=== PATIENT | male | born 1965 | race Caucasian/White ===

== ENCOUNTER 2023-01-23 22:52 | Emergency (ER) | payer OTHER, SELFPAY ==
--- NOTE | 2023-01-23 23:03 | PC.NURSE ---
[facility] Dudley Doreen notified of patient's in ER. Mr. Logan has released the body.
--- NOTE | 2023-01-24 00:03 | PC.NURSE ---
Pt arrived to ED via EMS CPR in progress at 2242. IO was present in R tibia with NS running. CPR given with Memo device. EMS administered 2 L NS and 11 rounds of epinephrine 1 mg enroute to facility. Pt was intubated at the scene. At 2246 1 of epinephrine was given via IO. At 2246 1 amp of bicarb was given IO. Pulse check at 2247 revealed asystole on the monitor. CPR resumed. I-gel placed by EMS was removed at 2249 and pt was intubated with ET tube. 1 mg of epinephrine given at 2249 via IO. Pulse check at 2250 revealed asystole on the monitor. CPR resumed. At 2252 pulse check revealed asystole. TOD announced at 2252 by .
--- NOTE | 2023-01-24 00:25 | PC.NURSE ---
01/23/23 2306 [facility] notified of patient's .
--- NOTE | 2023-01-24 03:20 | W.ED.CPR ---
HPI - CPR General: Chief Complaint: Cardiac Arrest/CPR Stated Complaint: CARDIAC ARREST Time Seen by Provider: 01/23/23 22:59 Source: patient History of Present Illness: 57-year-old male with no real prior history. History is a bit limited. I was called by paramedics on scene for a gentleman who had collapsed at home. Family evidently had heard his Drop while in the next room. CPR and ACLS protocol were started within 10 minutes. Initial rhythm was fine V-fib, that did not respond to shocked 3 times, 300 mg of amiodarone, and up to 11 mg of epinephrine, as his rhythm was asystole following. After 3 mg of epinephrine, I received a call from the field. ACLS protocol had continued for 20 minutes at that point I believe. Paramedics talk to the family at that point about stopping resuscitative efforts, but the patient's insisted on him being brought to the hospital. No rhythm change from asystole from the roughly 30-minute drive to here. Paramedics report good capnography waveforms with following capnography to below 20 on the monitor, inability to achieve pulse ox, and mottling of the skin. Blood glucose had been reported at 99 By family report, the patient had been complaining of heartburn for several days prior on and off. MD complaint: found unresponsive, stopped breathing and collapsed during rest Onset (ago): minute(s) Place: home Bystander CPR performed: No Number of shocks delivered: 3 Downtime before ACLS arrival (mins): 10 Initial findings in the field: unresponsive, no pulse and VTACH/VFIB (Fine V-fib) ROSC in the field: No Associated injuries: No Associated symptoms: chest pain Known history of: other Treatments prior to arrival: other airway device, chest compressions, defibrillated shocks # (3), epinephrine mgs # (11) and sodium bicarbonate (1 amp) Review of Systems General: Reports: ROS unobtainable due to medical condition Card: Reports: chest pain PENDING SALE TO [facility] ED PFSH: Social History Smoking and tobacco status: current every day smoker Alcohol intake: never Substance/Drug Use: never Physical Exam Const: GENERAL APPEARANCE: ill appearing ORIENTATION/CONSCIOUSNESS: Yes Other orientation findings (Unresponsive) HENMT: COMMON NORMALS: normocephalic, atraumatic and Normal external nose present HEAD & SCALP: normocephalic and atraumatic FACE & SINUS: face symmetric NOSE: Normal external nose present Eye: PUPIL: Yes Dilated pupils and Yes Fixed pupils Neck/C-Spine: GENERAL: Yes trachea midline Chest: CHEST: Yes Symmetrical chest wall rise (Via bag respiration) Resp: AUSCULTATION: rales OTHER: No spontaneous respirations Cardio: PERIPHERAL PULSES: other (Pulseless) GI: COMMON NORMALS: Soft to palpation INSPECTION: Yes abdominal distension PALPATION: Yes Soft to palpation Extremity: NARRATIVE EXTREMITY EXAM: Mottling present Neuro: [place] COMA SCALE: document GCS findings [place] coma scale eye opening: None [place] coma scale verbal response: None [place] coma scale motor response: None [place] coma scale total score: 3 Procedures Intubation Time out performed: No sedative: none Laryngoscope: Sarita (4) ET Tube Size: 8 ET Tube Uncuffed: No Tube Secured Depth (cm): 25 Tube Placement Confirmation: visualized tube passing through cords and equal breath sounds bilaterally Patient Tolerated Procedure: no complications Intubation Complications: none MDM - Cardiac Arrest/CPR Medical Decision Making I gel had been placed in the field. This was traded out for an endotracheal tube on the patient's arrival. 2 more milligrams of epinephrine were used per ACLS protocol for asystole, as well as bicarbonate. This did not change the patient's rhythm and ALT on 3 pulse checks. Code was called at 2253. Family arrived a short time later, and was counseled on events, expiration, etc. Critical Care Time Critical Care Time: Critical Care Time: Yes Total Critical Care Time: 35 Attestation: This case had a high probability of a clinically significant, sudden, or life threatening deterioration of this patient's condition which required my full and direct attention, intervention and personal management. Time does not include any procedures performed Discharge Plan Discharge Patient Disposition: Clinical Impression: Cardiac arrest Prescriptions: No Action No Known Home Medications Coding Level of Care Code ED Rail Transit Operator for Artemio Mackay
== END 2023-01-24 00:54 | disposition expired ==
PROVIDERS: Emergency Provider Emergency Medicine
DX: I46.9 Cardiac arrest, cause unspecified (principal); F17.210 Nicotine dependence, cigarettes, uncomplicated
CPT/HCPCS: 31500; 99285; J0171